=== PATIENT | female | born 1945 | race Caucasian/White ===

== ENCOUNTER → 2018-07-26 | Outpatient (CLI) | payer MEDICARE, OTHER ==
[~2018-07-26] MED LIST: ALPR0.5T3 PO; ASPI81TA45 PO; ATOR20TA37 PO; METO-93 PO; VALS1TAB30 PO
== END | disposition home or self-care (01) ==
LOC: CVU 14:34
PROVIDERS: ATTEND Internal Medicine Cardiovascular Disease
DX: I63.9 Cerebral infarction, unspecified (principal); I70.8 Atherosclerosis of other arteries; I10 Essential (primary) hypertension; Z86.73 Personal history of transient ischemic attack (TIA), and cerebral infarction without residual deficits
CPT/HCPCS: 93306; 93880